=== PATIENT | female | born 1970 | race Caucasian/White ===

== ENCOUNTER 2023-01-03 18:40 | Emergency (ER) | payer BC, SELFPAY ==
[2023-01-03] VITALS (8 sets, daily range): BP systolic 112–129; BP diastolic 68–85; PULSE 73–98; RESP 18; TEMP 36.7; O2SAT 97–98; BMI 32.2
--- NOTE | 2023-01-03 19:07 | ED_ITS ---
HPI - General Adult General Time Seen by Provider: 19:07 Date Seen: 01/03/23 Chief complaint: Shortness of Breath/Dyspnea Stated complaint: Trouble Breathing High BP Time Seen by Provider: 01/03/23 18:57 Source: patient and RN notes reviewed Mode of arrival: ambulatory Limitations: no limitations History of Present Illness HPI narrative: Patient is a very pleasant 52-year-old female coming in with episodic shortness of breath accompanied by a sense of a fast heart rate. The spells have been going on maybe a couple weeks now. They are happening at rest or with activity. There is really no rhyme or reason when they come on. She does not have any chest pain with it. She will feel short of breath in feel like her heart is racing. She recently has started to try to take her pulse and is maybe got pulses in the 120s to 140s when this is happening. When this happens she will feel like her palm starts sweating in her fingers will feel numb and tingly. Galo arriola does have a history of anxiety but she is not feeling anxious or panicked when this is happening. She drinks 1 cup of coffee a day otherwise no other caffeine. Very minimal alcohol use, maybe once a month. She has never had anything like this before. She is supposed to be leaving for [place] this coming Monday. She has not been ill with any recent cough or cold symptoms, is not aware of any recent COVID illness. She denies any known family history of any cardiopulmonary or thromboembolic issues. Patient does remember having maybe some blood in her urine about a week ago but that went away. We did discuss doing a urinalysis while here which she would like. Related Data Home Medications Medication Instructions Recorded Confirmed citalopram 20 mg tablet mg 01/03/23 krill oil PO 01/03/23 vit D3-vit [id number] PO 01/03/23 Allergies Allergy/AdvReac Type Severity Reaction Status Date / Time amoxicillin Allergy Verified 01/03/23 18:47 cephalexin [From Keflex] Allergy Verified 01/03/23 18:47 metformin Allergy Verified 01/03/23 18:47 Review of Systems Status of ROS: Reports: 10 or more systems reviewed and unremarkable except as noted in History and below PFSH PFSH Social History Smoking Status: Never smoker Do you use any of these nicotine containing products: None Second hand tobacco smoke exposure: No How often do you have a drink containing alcohol: monthly or less AUDIT-C Alcohol total score: 1 Non-prescribed substance use: denies use Exam Const: Vital Signs, click to edit/add: Vital Signs - 24 hr 01/03/23 18:48 01/03/23 19:10 01/03/23 19:11 Temperature 98.1 F Pulse Rate 73 77 Pulse Rate [Right Pulse Oximeter] 98 Respiratory Rate 18 Blood Pressure 129/84 Blood Pressure [Ri ght Upper Arm] 126/85 Pulse Oximetry 98 97 97 Oxygen Delivery Me thod Room Air 01/03/23 20:06 01/03/23 19:12 01/03/23 19:31 Temperature Pulse Rate 75 74 Pulse Rate [Right Pulse Oximeter] Respiratory Rate Blood Pressure Blood Pressure [Ri ght Upper Arm] Pulse Oximetry 98 97 97 Oxygen Delivery Me thod 01/03/23 19:35 01/03/23 20:05 Temperature Pulse Rate Pulse Rate [Right Pulse Oximeter] Respiratory Rate Blood Pressure 123/78 112/68 Blood Pressure [Ri ght Upper Arm] Pulse Oximetry Oxygen Delivery Me thod Documenting provider has reviewed patient's vital signs: yes Common normals: no apparent distress, average body habitus, oriented x3, no limi tations, healthy appearing, alert and well nourished General appearance: cooperative, comfortable, well kempt and well developed HENMT: Common normals: normocephalic, head/scalp atraumatic and hearing grossly normal bilaterally Head and scalp: normocephalic and atraumatic Eye: Common normals: PERRL, EOMs intact bilaterally, conjunctivae normal and no scleral icterus Conjunctiva: conjunctiva(e) normal Pupil: PERRL Neck & C-Spine: Common normals: full ROM, no lymphadenopathy, supple, no meningeal signs, no JVD and thyroid normal Thyroid: thyroid normal Resp: Common normals: normal respiratory effort, no retractions, no use of accessory muscles and clear to auscultation bilaterally Auscultation: clear to auscultation bilaterally Cardio: Common normals: no JVD, regular rate, regular rhythm, S1 normal heart sound, S2 normal heart sound, no gallops, no clicks and no murmurs Rate: regular rate Rhythm: regular rhythm Heart sounds: S1 normal and S2 normal GI: Common normals: Normal to inspection, nondistended, normoactive bowel sounds present, soft to palpation, non-tender, no hepatosplenomegaly and no masses Palpation: soft and no hepatosplenomegaly Extremity: Other: No lower extremity edema. Neuro: Common normals: oriented x3 and gait normal Sensorium/orientation: alert Meningeal signs: no meningeal signs Speech: speech normal Psych: Appearance: well kempt Course Course Hospital Course: Patient will have an EKG, portable chest x-ray. Will do a full complement of labs including electrolytes, cardiac enzymes, D-dimer, TSH. This is less likely to be thromboembolic disease but will be considered. I a.m. suspicious that she could be having some tachyarrhythmias like SVT. She understands that unless we see the rhythm disturbance, we cannot diagnose it. She may need further cardiac monitoring outpatient and further follow-up. Reevaluation(s) Reevaluation #1: Reviewed with patient her normal workup thus far. She has had no spells while she has been here. We are still awaiting a thyroid test on her and will let her know if it is abnormal and she would need follow-up for it. Otherwise, have reviewed with her that we will culture her urine. There is no definitive infection at this time. We discussed cardiac monitoring, I am able to provide her with a Holter monitor here [facility] and she would like to do so. She understands that she is going to need to make a clinic follow-up, she stated that she already had made an appointment. She may need further monitoring the Holter monitor does not show anything. Have discussed if this rhythm disturbance happens again and she can seek medical care while it is happening, would advise this, would advise an EKG be done. She will start to try to monitor her pulse rate during these episodes. She does have an Apple watch and recommend checking that. Time: 20:39 Vital Signs Vital signs: Initial Vital Signs Temperature 98.1 F 01/03/23 18:48 Temperature Source Temporal Artery Scan 01/03/23 18:48 Pulse Rate 98 01/03/23 18:48 Respiratory Rate 18 01/03/23 18:48 Blood Pressure 126/85 01/03/23 18:48 Blood Pressure Mean 98 01/03/23 18:48 Blood Pressure Position Sitting 01/03/23 18:48 Pulse Oximetry 98 01/03/23 18:48 Oxygen Delivery Method 01/03/23 18:48 Vital Signs Temperature 98.1 F 01/03/23 18:48 Pulse Rate 98 01/03/23 18:48 Respiratory Rate 18 01/03/23 18:48 Blood Pressure 126/85 01/03/23 18:48 Pulse Oximetry 98 01/03/23 18:48 Oxygen Delivery Method 01/03/23 18:48 Temperature 98.1 F 01/03/23 18:48 Pulse Rate 74 01/03/23 19:31 Respiratory Rate 18 01/03/23 18:48 Blood Pressure 112/68 01/03/23 20:05 Pulse Oximetry 98 01/03/23 20:06 Oxygen Delivery Method 01/03/23 18:48 Medical Decision Making Lab Data Lab results reviewed: Yes I reviewed the patient's lab results Labs: Lab Results 01/03/23 01/03/23 01/03/23 Range/Units 19:35 19:35 19:35 WBC 8.18 (4.50-11.00) K/uL RBC 4.74 (4.00-5.20) m/uL Hgb 13.7 (12.0-16.0) gm/dL Hct 40.9 (33.0-51.0) % MCV 86 (80-100) fL MCH 29 (26-34) pg MCHC 34 (32-36) gm/dL RDW Coeff of Erica 13.5 (11.5-15.5) % Plt Count 331 (140-440) K/uL Neut % (Auto) 54.2 (42.0-72.0) % Lymph % (Auto) 36.7 (20-44) % Jerauld % (Auto) 6.1 (0.0-11.0) % Eos % (Auto) 2.4 (0.0-7.0) % Baso % (Auto) 0.2 (0.0-3.0) % Neut # (Auto) 4.43 (1.7-7.0) K/uL Lymph # (Auto) 3.00 H (0.90-2.90) K/uL Jerauld # (Auto) 0.50 (0.00-0.90) K/UL Eos # (Auto) 0.20 (0.00-0.50) K/uL Baso # (Auto) 0.02 (0.00-0.30) K/uL D-Dimer Quant (PE/DVT) 0.20 (0.00-0.50) ug/ml Sodium 139 (135-149) mmol/L Potassium 4.1 (3.6-5.1) mmol/L Chloride 106 (96-114) mmol/L Carbon Dioxide 26 (20-32) mmol/L BUN 24 (7-30) mg/dL Creatinine 0.7 (0.5-1.5) mg/dL Estimated Creat Clear 94.84 Estimated GFR 104 ml/min Glucose 88 (60-115) mg/dL Calcium 8.8 (8.4-10.6) mg/dL Magnesium 2.1 (1.5-2.6) mg/dL Total Bilirubin 0.4 (0.1-1.5) mg/dL AST 32 (12-35) U/L ALT 35 (4-35) U/L Alkaline Phosphatase 75 (40-150) U/L NT-Pro-B Natriuret Pep 37 pg/mL Total Protein 7.2 (6.0-8.3) g/dL Albumin 4.1 (3.3-5.0) g/dL Urine Color (Yellow) Urine Appearance (Clear) Urine pH (5.0-8.5) Ur Specific [place] (1.000-1.030) Urine Protein (Negative) Urine Glucose (UA) (Negative) Urine Ketones (Negative) Urine Blood (Negative) Urine Nitrite (Negative) Urine Bilirubin (Negative) Urine Urobilinogen (0.2-1.0) Ur Leukocyte Esterase (Negative) Urine RBC (0-2) Urine WBC (0-5) Ur Squamous Epith Cells (None-Few) Urine Bacteria (None) POC Troponin I (0.01-0.04) ng/ml 01/03/23 01/03/23 Range/Units 19:35 20:00 WBC (4.50-11.00) K/uL RBC (4.00-5.20) m/uL Hgb (12.0-16.0) gm/dL Hct (33.0-51.0) % MCV (80-100) fL MCH (26-34) pg MCHC (32-36) gm/dL RDW Coeff of Erica (11.5-15.5) % Plt Count (140-440) K/uL Neut % (Auto) (42.0-72.0) % Lymph % (Auto) (20-44) % Jerauld % (Auto) (0.0-11.0) % Eos % (Auto) (0.0-7.0) % Baso % (Auto) (0.0-3.0) % Neut # (Auto) (1.7-7.0) K/uL Lymph # (Auto) (0.90-2.90) K/uL Jerauld # (Auto) (0.00-0.90) K/UL Eos # (Auto) (0.00-0.50) K/uL Baso # (Auto) (0.00-0.30) K/uL D-Dimer Quant (PE/DVT) (0.00-0.50) ug/ml Sodium (135-149) mmol/L Potassium (3.6-5.1) mmol/L Chloride (96-114) mmol/L Carbon Dioxide (20-32) mmol/L BUN (7-30) mg/dL Creatinine (0.5-1.5) mg/dL Estimated Creat Clear Estimated GFR ml/min Glucose (60-115) mg/dL Calcium (8.4-10.6) mg/dL Magnesium (1.5-2.6) mg/dL Total Bilirubin (0.1-1.5) mg/dL AST (12-35) U/L ALT (4-35) U/L Alkaline Phosphatase (40-150) U/L NT-Pro-B Natriuret Pep pg/mL Total Protein (6.0-8.3) g/dL Albumin (3.3-5.0) g/dL Urine Color Yellow (Yellow) Urine Appearance Clear (Clear) Urine pH 6.0 (5.0-8.5) Ur Specific [place] 1.015 (1.000-1.030) Urine Protein Negative (Negative) Urine Glucose (UA) Negative (Negative) Urine Ketones Negative (Negative) Urine Blood Trace-intact A (Negative) Urine Nitrite Negative (Negative) Urine Bilirubin Negative (Negative) Urine Urobilinogen 0.2 (0.2-1.0) Ur Leukocyte Esterase Negative (Negative) Urine RBC 2-5 A (0-2) Urine WBC 0-2 (0-5) Ur Squamous Epith Cells Few (None-Few) Urine Bacteria Few A (None) POC Troponin I 0.00 L (0.01-0.04) ng/ml Imaging Data Chest x-ray: Attestation: I have reviewed the pertinent imaging results. My impression: No acute abnormality on my preliminary review of this portable chest x-ray. Radiologist's impression: Patient: LUIS F EISENBERG Facility:?[facility] Patient ID:?[id number] Site Patient ID:?[id number]. Site :?[id number] Study:?XRay Chest PORTABLE CHEST-01/03/2023 8:02:25 PM Ordering Physician:Kiet Monsalve Final Report: INDICATION: Episodic shortness of breath. Tachycardia TECHNIQUE: Chest 1 view(s) COMPARISON: Chest radiograph dated 06/06/2012. FINDINGS: Cardiomediastinal silhouette and pulmonary vasculature are normal. No focal consolidation. No significant layering pleural effusion, no pneumothorax. No acute chest wall abnormality. IMPRESSION: No focal consolidation. Dictated by Radha Escamilla MD @ 01/03/2023 8:29:08 PM (Electronic Signature) ECG Data Attestation: I personally reviewed and interpreted this ECG as follows: (Normal sinus rhythm, 77 beats per minute. QT corrected 411 milliseconds. No acute ischemia noted.) Prior ECG tracings: not available for review Critical Care Time Critical Care Time Critical Care Time: No Discharge Plan Discharge Clinical Impression: Shortness of breath, Tachycardia Patient Disposition: Home, Self-Care Condition: Stable Instructions: Tachycardia (ED) Additional Instructions: Return the Holter monitor as per Radiology instructions. Need to keep your clinic follow-up that you have scheduled. We will let you know if there is any abnormality with the thyroid blood test or urine culture. Know that the urine culture will not be back for 48 hours. In the meantime, if you have any sustained fast heart rate where you can get somewhere and have an EKG done, need to do so. If you have no episodes while on the Holter monitor, may need to consider further monitoring with a different device like a ZIO patch. Activity Level: Activity as Tolerated Prescriptions: No Action citalopram 20 mg tablet Label Comments: TAKE 1 TABLET BY MOUTH DAILY vit D3-vit [id number]-[id number] PO krill oil PO Follow Up/Referrals: Keenan Adkins MD [Primary Care Provider] - Stand Alone Forms: [employer] Info Instructions
--- NOTE | 2023-01-03 19:20 | CRLHL7_ITS ---
For Patients: As a result of the Cures Act, medical imaging exams and procedure reports are released immediately into your electronic medical record. You may view this report before your referring provider. If you have questions, please contact your health care provider. INDICATION: Episodic shortness of breath. Tachycardia TECHNIQUE: Chest 1 view(s) COMPARISON: Chest radiograph dated 06/06/2012. FINDINGS: Cardiomediastinal silhouette and pulmonary vasculature are normal. No focal consolidation. No significant layering pleural effusion, no pneumothorax. No acute chest wall abnormality. IMPRESSION: No focal consolidation. Dictated by Radha Escamilla MD @ 01/03/2023 8:29:08 PM (Electronically Signed)
[2023-01-03 20:04] LABS: Basophils Absolute Auto 0.02 K/uL (0.00-0.30); Basophils Percent Auto 0.2 % (0.0-3.0); Eosinophils Percent Auto 2.4 % (0.0-7.0); Hematocrit 40.9 % (33.0-51.0); Hemoglobin* 13.7 gm/dL (12.0-16.0); Immature Granulocytes Abs Auto 0.03 K/uL (0.00-0.30); Immature Granulocytes Pct Auto 0.4 %; Lymphocytes Percent Auto 36.7 % (20-44); Mean Corpuscular HGB Conc 34 gm/dL (32-36); Mean Corpuscular Hemoglobin 29 pg (26-34); Mean Corpuscular Volume 86 fL (80-100); Monocytes Percent Auto 6.1 % (0.0-11.0); Neutrophils Absolute Auto 4.43 K/uL (1.7-7.0); Neutrophils Percent Auto 54.2 % (42.0-72.0); Platelet Count* 331 K/uL (140-440); RDW Coefficient of Variation % 13.5 % (11.5-15.5); Red Blood Count 4.74 m/uL (4.00-5.20); White Blood Count* 8.18 K/uL (4.50-11.00)
[2023-01-03 20:06] LABS: Slide Review Reflex No
[2023-01-03 20:12] LABS: Appearance Urine Clear (Clear); Bilirubin Urine Negative (Negative); Blood Urine Trace-intact (Negative); Color Urine Yellow (Yellow); Glucose Urine Negative (Negative); Ketones Urine Negative (Negative); Leukocyte Esterase Urine Negative (Negative); Nitrite Urine Negative (Negative); Protein Urine Negative (Negative); Specific Gravity Urine 1.015 (1.000-1.030); Urobilinogen Urine 0.2 (0.2-1.0)
[2023-01-03 20:12] LABS: Albumin* 4.1 g/dL (3.3-5.0); Chloride* 106 mmol/L (96-114)
[2023-01-03 20:13] LABS: Potassium* 4.1 mmol/L (3.6-5.1); Sodium* 139 mmol/L (135-149)
[2023-01-03 20:15] LABS: Aspartate Amino Transferase* 32 U/L (12-35); Bilirubin Total* 0.4 mg/dL (0.1-1.5); Blood Urea Nitrogen* 24 mg/dL (7-30); Carbon Dioxide* 26 mmol/L (20-32); Creatinine* 0.7 mg/dL (0.5-1.5); Est. Creatinine Clearance* 94.84; Estimated Glomerular Filt Rate 104 ml/min; Total Protein* 7.2 g/dL (6.0-8.3)
[2023-01-03 20:16] LABS: Alanine Aminotransferase* 35 U/L (4-35); Alkaline Phosphatase* 75 U/L (40-150); Calcium* 8.8 mg/dL (8.4-10.6); Glucose* 88 mg/dL (60-115); Magnesium* 2.1 mg/dL (1.5-2.6)
[2023-01-03 20:27] LABS: WBC Urine 0-2 (0-5)
[2023-01-03 20:28] LABS: Bacteria Urine Few; Squamous Epithelial Cell Urine Few (None-Few)
[2023-01-03 20:28] LABS: NT Pro B Type NatriureticPept* 37 pg/mL
[2023-01-03 20:48] LABS: TSH With Reflex to FT4* 0.888 uIU/mL (0.270-4.200)
--- NOTE | 2023-01-03 21:30 | PC.NURSE ---
Holter applied per radiology, instruction given to patient.
== END 2023-01-03 21:30 | disposition home or self-care (01) ==
PROVIDERS: Emergency Provider Family Medicine; PCP Family Medicine
DX: R06.02 Shortness of breath (principal); R00.0 Tachycardia, unspecified
CPT/HCPCS: 36415; 71045; 80053; 81001; 83735; 83880; 84443; 84484; 85025; 85379; 87086; 93005; 93225; 93226; 94761; 99284; 99285

== ENCOUNTER 2023-04-24 11:50 | Outpatient (CLI) | payer BC, SELFPAY ==
--- NOTE | 2023-04-24 14:20 | W.ANESCHARGE ---
Anesthesia Charges Start Date/Time Anesthesia Start Date: 04/24/23 Anesthesia Start Time: 13:26 Stop Date/Time Anesthesia Stop Date: 04/24/23 Anesthesia Stop Time: 14:18
== END 2023-04-24 11:51 | disposition home or self-care (01) ==
LOC: OP CLINIC 11:51
PROVIDERS: PCP Family Medicine; Visit Provider Surgery
DX: Z12.11 Encounter for screening for malignant neoplasm of colon (principal); K63.5 Polyp of colon; K62.1 Rectal polyp; K64.8 Other hemorrhoids; K64.4 Residual hemorrhoidal skin tags
CPT/HCPCS: 00811; 45380; 45385; 88305; J2704

== ENCOUNTER 2025-01-31 09:15 | Emergency (ER) | payer BC, SELFPAY ==
--- OUTSIDE RECORDS SUMMARY | 2025-01-31 09:17 | XMS_ITS | Clinical Summary ---
[facility] Address [address] [place] [address] Care Team Providers Care Editor At Large Name Role Phone Unassigned, Provider Primary Care Provider Unava ilable Source Comments You are receiving this document as you are listed as the primary care provider,follow-up provider, or the patient has been referred to you for consultation.This is in compliance with the Medicare andMedicaid EHR Incentive Program,which states Providers who transition their patient to another setting of careor provider of care or refers their patient to another provider of care shouldprovide summary care record for each transition of care or referral. [facility] Allergies Active Allergy Reactions Criticality Noted Date Comments Cat Dander 04/10/2007 HUT Comment: watery eyes and nasal congestion Ciprofloxacin Other, see comments 07/25/2015 HUT Comment: Leg tightness, sore throat see encounter 07/25/2015; HUT Reaction: Other - Describe In Comment Field Metformin Other, see comments 02/28/2013 HUT Reaction: Diarrhea Molds & Smuts 04/10/2007 HUT Comment: watery eyes and nasal congestion Other 04/10/2007 HUT Comment: environmental-grass trees pollen etc-watery eyes and nasal congestion Sulfamethoxazole-Trimet hoprim Other, see comments 08/04/2016 HUT Comment: GI intolerance; HUT Reaction: Other - Describe In Comment Field Active Problems Problem Noted Date Diagnosed Date Hiatal hernia with GERD 06/13/2018 Anxiety state 02/22/2018 Wrist pain, chronic, right 09/25/2017 PCOS (polycystic ovarian syndrome) 05/18/2017 Hiatal hernia 05/12/2016 Gastric reflux with aspiration 05/12/2016 Giles's esophagus without dysplasia 05/12/2016 SOLIS (obstructive sleep apnea) 10/21/2015 Overview (09/05/2019): SOLIS 10/10/2015 AHI-17 underestimated Hyperlipidemia 08/06/2015 History of recurrent UTIs 08/06/2015 Giles's esophagus with dysplasia 05/29/2014 Overview (09/05/2019): EGD 05/2014 esophageal ulcer and Giles's esophagus Raynaud disease 11/13/2013 Psoriasis 02/28/2013 Allergic rhinitis 03/12/2012 Overview (09/06/2019): Allergic rhinitis, cause unspecified Polycystic ovaries Endometriosis Overview (09/06/2019): Endometriosis, site unspecified Dysmenorrhea Other acne Resolved Problems Problem Noted Date Diagnosed Date Resolved Date UTI (urinary tract infection) 05/12/2016 09/05/2019 Immunizations Immunization Administration Dates Next Due Influenza IIV4 (Quadrivalent) 0.5mL (40008) 02/2015 Td (7+ yrs) 07/07/1999 Tdap 11/09/2011 Family History Medical History Relation Name Comments Cancer Father esophogus - at 60 Hypertension Father Allergies Mother Asthma Mother Hyperlipidemia Mother Hypertension Mother Other Mother migraines Giles's esophagus Brother 3 Giles's esophagus Brother 4 Other Daughter 2 developemental delay with verbal apraxia Cancer Maternal Grandfather bladder Arthritis Maternal Grandmother Other Maternal Grandmother kidney stones Cancer, Breast Other 2 great aunt Cancer, Breast Paternal Aunt 2 Diabetes Paternal Grandmother Relation Name Status Comments Father Mother Alive Brother 1 Brother 2 Brother 3 Brother 4 Daughter 1 Daughter 2 Maternal Grandfather Maternal Grandmother Other 1 Other 2 Paternal Aunt 1 Paternal Aunt 2 Paternal Grandfather Paternal Grandmother Social History Tobacco Use Types Packs/Day Years Used Date Smoking Tobacco: Never Smokeless Tobacco: Never Alcohol Use Standard Drinks/Week Comments Yes 0 (1 standard drink = 0.6 oz pur e alcohol) Comments No Sex and Gender Information Value Date Recorded Sex Assigned at Not on file Legal Sex Female 5:22 AM CDT Gender Identity Not on file Sexual Orientation Not on file 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 Not on file Not on file Plan of Treatment Health Maintenance Due Date Last Done Comments Cervical Cancer Screening Due 1970 Colon Cancer Screening Plan Due 1970 Hep C Screening (Preventive Services) 1970 HIV Screening (Preventive Services) 1986 Adult Preventive Visit 1988 HepB (1) 1989 Mammogram 08/29/2012 08/29/2011 (Completed) Cholesterol 2015 Pneumococcal 50+ Yrs (1 of 1 - PCV) 2020 Zoster/Shingles (1 of 2) 2020 DTaP/Tdap/Td (3 - Tdap) 11/09/2021 11/09/19 12, 08/29/2011 (Completed), 07/07/1999 COVID-19 Vaccine (1 - 2023-2 5 season) 2024 Influenza (#1) 2024 09/09/2015 HepA Aged Out No longer eligi ble based on patient's age to complete this topic Hib Aged Out No longer eligi ble based on patient's age to complete this topic IPV (Polio) Aged Out No longer eligi ble based on patient's age to complete this topic MCV4 Aged Out No longer eligi ble based on patient's age to complete this topic Meningococcal B Aged Out No longer el igible based on patient's age to complete this topic Care Teams Editor At Large Relationship Specialty Start Date End Date Unassigned, Provider [address] [place] [address] PCP - General 07/11/02
--- OUTSIDE RECORDS SUMMARY | 2025-01-31 09:18 | XMS_ITS | Clinical Summary ---
Author Organization [facility] Address [address] [place] [address] Care Team Providers Care Director Hris Name Role Phone Lashon Conrad DO Primary Care Provider [phone]- [phone] Allergies Active Allergy Reactions Criticality Noted Date Comments Amoxicillin *Unknown 01/03/2023 Sulfamethoxazole-Trimet hoprim Other - Describe In Comment Field 08/04/2016 GI intolerance Cats (Fur, Dander, Saliva) 04/10/2007 watery eyes and nasal congestion Cephalexin *Unknown 01/03/2023 Ciprofloxacin Other - Describe In Comment Field 07/25/2015 Leg tightness, sore throat see encounter 07/25/2015 Latex Contact Dermatitis 12/19/2023 Metformin Diarrhea 02/28/2013 Mold Extracts 04/10/2007 watery eyes and nasal congestion Unlisted Allergen (Include Detail In Comments) 04/10/2007 environmental-grass trees pollen etc-watery eyes and nasal congestion Medications acetaminophen (TYLENOL EXTRA STRGTH) 500 mg tabletIndication s:Gastric reflux with aspiration Take 1-2 tablets by mouth every 6 hours if needed (For mild pain.). Max acetaminophen dose: 4000mg in 24 hrs. 40 tablet 8 9:53 AM CDT 06/14/20 18 Active albuterol (PROAIR RESPICLICK) 90 mcg/actuation INHALERIndicatio ns:Exercise induced bronchospasm (HC) Inhale 2 Puffs by mouth every 4 hours if needed. 1 Inhaler 1 01/29/20 20 Active CPAPIndications: SOLIS (obstructive sleep apnea) CPAP machine for home use at pressure 14 cmw , full face mask x1/3month with a full face cushion x1/mo Heat humidifier x 1/5 year, Humidifier chamber x 1/6mo, heated tubing x 1/3mo, Headgear x 1/6mo, Chin strap x 1/6 months, Filters: Disposable x 2pk/1mo & Reusable x 1pk/6mo 1 Each 11 02/16/20 23 Active Fish Oil-Volcano-3 Fatty Acids (Fish OiL) 300-500 mg cap Take 500 mg by mouth once daily. 07/18/20 23 Active biotin 1 mg cap Take 1,000 mcg by mouth once daily. 04/12/20 23 Active neomycin-polymyx in-dexAMETHasone (MAXITROL) ophthalmic ointment 04/29/20 24 Active celecoxib (CELEBREX) 200 mg capsuleIndicatio ns:Arthritis of right hip Take 1 Capsule (200 mg) by mouth two times daily with meals. Patient failed ibuprofen, acetaminophen and naproxen 60 Capsule 2 05/01/20 24 Active citalopram (CELEXA) 20 mg tabletIndication s:Anxiety TAKE 1 TABLET BY MOUTH DAILY 90 Tablet 1 06/22/20 24 Active progesterone micronized (PROMETRIUM) 100 mg capsule Take 100 mg by mouth at bedtime. 07/24/20 24 Active estradioL (ESTRACE) 1 mg tablet Take 1 mg by mouth once daily. 07/24/20 24 Active citalopram (CELEXA) 10 mg tabletIndication s:Anxiety Take 1 Tablet (10 mg) by mouth once daily in the morning. Take in addition to 20 mg tablet for 30 mg total daily dose. 90 Tablet 1 09/21/20 24 Active losartan (COZAAR) 25 mg tabletIndication s:HTN (hypertension) Take 1 Tablet (25 mg) by mouth once daily. 90 Tablet 12/17/19 25 Active loratadine-pseud oephedrine (Loratadine-D) 10-240 mg 24hr tabletIndication s:Environmental allergies Take 1 Tablet by mouth once daily. 90 Tablet 1 12/17/19 25 Active Linzess 290 mcg cap capsule Take 1 Capsule by mouth before breakfast. 025 Discontin ued(*Gail ent states no longer taking) Voquezna 20 mg tablet Take 20 mg by mouth once daily. 07/25/20 24 025 Discontin ued(*Gail ent states no longer taking) Active Problems Problem Noted Date Diagnosed Date Arthritis of right hip 02/21/2024 Overview (02/21/2024): November 2023 pain started. February 2024 MRI showing labral tear and arthritis. Anxiety 01/31/2024 HTN (hypertension) 01/31/2024 Digital mucous cyst of finger of right hand 05/07 Traumatic tear of supraspinatus tendon of right shoulder 11/28/2021 Tear of right infraspinatus tendon 11/28/2021 Tendinopathy of right biceps tendon 11/28/2021 Rotator cuff impingement syndrome of right shoul kacey 11/28/2021 Hiatal hernia with GERD 06/13/2018 Anxiety state 02/22/2018 Wrist pain, chronic, right 09/25/2017 PCOS (polycystic ovarian syndrome) 05/18/2017 Giles's esophagus without dysplasia 05/12/2016 Gastric reflux with aspiration 05/12/2016 Hiatal hernia 05/12/2016 SOLIS 10/10/2015 AHI-17 underestimated 10/21/2015 History of recurrent UTIs 08/06/2015 Mixed hyperlipidemia 08/06/2015 Giles's esophagus with dysplasia 05/29/2014 Overview (05/29/2014): EGD 05/2014 esophageal ulcer and Giles's esophagus Raynaud disease 11/13/2013 Psoriasis 02/28/2013 Allergic rhinitis, cause unspecified 03/12/2012 Other acne Dysmenorrhea Endometriosis, site unspecified Polycystic ovaries Resolved Problems Problem Noted Date Diagnosed Date Resolved Date UTI (urinary tract infection) 05/12/2016 10/20/2023 Encounters Date Type Department Care Team Description 01/31/2025 8:00 AM CDT Telemedicine [address] [address] Valentin Melton NP Breathing Problem (Patient states she feels heavy pressure on her chest); Headache (Patient states illness started with a severe headache, roughly two weeks ago. OTC meds did not help. Took at home COVID-19 test - negative. Loss of vision in right eye during episodes.); Fatigue; Cough (Nonproductive cough, very harsh) 01/31/2025 Travel 12/16/2024 Refill [facility] [address] [place] [address] Lashon Conrad, DO Refill Request (Loratadine) 12/16/2024 Refill [facility] [address] [place] [address] Lashon Conrad, DO Refill Request (Losartan) from Last 3 Months Immunizations Immunization Administration Dates Next Due Influenza Virus, Unspecified 09/06/2015 Influenza, IIV3 (Age >=3 years) 10/18/2003 Influenza, IIV4 09/09/2015 Td (Age >=7 Years) 11/15/2021 Td, Preservative Free (age >= 7 Years) 9 Tdap 11/09/2011 Family History Medical History Relation Name Comments Giles's esophagus Brother 1 Giles's esophagus Brother 2 Other Daughter developemental delay with verbal apraxia Cancer Father esophogus - at 60 Hypertension Father Cancer Maternal Grandfather bladder Arthritis Maternal Grandmother Other Maternal Grandmother kidney stones Allergies Mother Asthma Mother Cancer-breast Mother Hyperlipidemia Mother Hypertension Mother Other Mother migraines Cancer-breast Other great aunt Cancer-breast Paternal Aunt Alcohol/Drug Paternal Grandfather Diabetes Paternal Grandmother Relation Name Status Comments Brother 1 Brother 2 Daughter Father Maternal Grandfather Maternal Grandmother Mother Alive Other Paternal Aunt Paternal Grandfather Paternal Grandmother Social History Tobacco Use Types Packs/Day Years Used Date Smoking Tobacco: Never Smokeless Tobacco: Never Tobacco Cessation:Counseling Given: Yes Alcohol Use Standard Drinks/Week Comments Not Currently 0 (1 standard drink = 0.6 oz pur e alcohol) PHQ-2 Answer Date Recorded PHQ-2 TOTAL SCORE 2 01/31/2024 Social Connections Answer Date Recorded Do you often feel lonely or isolated from those around you? 0 10/19/2023 Financial Resource Strain Answer Date R ecorded Difficulty of Paying Living Expenses 3 10/19/2023 Difficulty of Paying Living Expenses Not on file 10/19/2023 Food Insecurity Answer Date Recorded Do you worry your food will run out before you are able to buy more? 1 10/19/2023 Transportation Needs Answer Date Record ed Does lack of transportation keep you from medica l appointments? 1 10/19/2023 Does lack of transportation keep you from work, meetings or getting things that you need? 1 10/19/2023 Housing Stability Answer Date Recorded What is your housing situation today? 1 10/19/2023 Utilities Answer Date Recorded Do you have trouble paying f or utilities (for example, heat, electricity, water, phone)? 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 Not on file Not on file Obstetrics History Para Term AB IAB SAB Ectopic Multiple Livin g Live Births 4 3 3 0 1 0 1 0 0 3 Date Outcome GA Total Labor Labor/2nd/3rd Weight Sex Type Anes PTL Porsche A1 A5 Name Clin SAB Term Term Term Comments x3 Last Filed Vital Signs Vital Sign Reading Time Taken Comments Blood Pressure 123/75 08/21/2024 3:27 PM CDT Pulse 72 08/21/2024 3:27 PM CDT Temperature 36.4 C (97.5 F) 05/01/2024 1:10 PM CDT Respiratory Rate 16 04/03/2024 3:06 PM CDT Oxygen Saturation 95% 05/01/2024 1:10 PM CDT Inhaled Oxygen Concentration - - Weight 95.2 kg (209 lb 12.8 oz) 01/04/2024 2:29 PM NUCLEAR PHYSICIAN Height 172.7 cm (5' 8) 12/20/2023 6:19 AM NUCLEAR PHYSICIAN Body Mass Index 31.9 12/20/2023 6:19 AM NUCLEAR PHYSICIAN Plan of Treatment Health Maintenance Due Date Last Done Comments HIV for age 15-65 1985 Hepatitis C screening for ag e 18-79 1988 Pneumococcal series for age 50+ (1 of 1 - PCV) 2020 Zoster (shingles) series for age 50+ (1 of 2) 2020 COVID-19 vaccine series ( season) 2024 06/26/2021, 06/04/2021 Influenza Vaccine (#1) 2024 5, 09/06/2015, 10/18/2003 Mammogram for age 45-75 11/14/2024 11/14/19 24, 10/27/2023, 08/03/2021, Additional history exists BMI (ht and wt on same day) for age 18+ 12/14/2024 12/14/2023, 04/21/2023, 01/23/2023, Additional history exists Pap test for age 21-65 01/28/2025 , 01/28/2022, 08/04/2015, Additional history exists Depression screening for age 12+ 01/30/2025 01/31/2024, 01/31/2024, 01/05/2024, Additional history exists Lipids for age 45-75 01/24/2028 01/23/2023, 01/21/2021, 10/22/2020, Additional history exists Tetanus booster 11/15/2031 11/15/2021, 02/2012, 08/29/2011 (Completed outside of [facility]), Additional history exists Colonoscopy through age 75 04/24/2033 04/24/2023 Tdap Completed 11/09/2011 Medical Devices Implanted Type Area Fine Arts Instructor Device Identifier Shelf Expiration Date Model / Serial / Lot Linx Reflux Management System 17 Implanted:Qty: 1 on 05/11/2016 by Rubin Helton MD at [facility] [employer] 02/09/2020 / [id number] / [id number] Description:Linx Reflux Emily gement System 17 Procedures Procedure Name Priority Date/Time Associated Diagnosis Comments XR MAMMO MARY UNI ADDL VIEWS LEFT STEVIE 11/14/2023 1:39 PM NUCLEAR PHYSICIAN Abnormal mammogram COLONOSCOPY SCREENING Routine 04/24/2023 12:00 AM CDT Screening for colon cancer LC LIPID PANEL AND CHOL/HDL RATIO Routine 01/23/2023 2:42 PM CDT Mixed hyperlipidemia HPV HIGH RISK Routine 01/28/2022 9:15 AM CDT from Last 3 Months or Most Recently Relevant to Health Maintenance Results * XR MAMMO MARY UNI ADDL VIEWS LEFT (11/14/2023 1:39 PM NUCLEAR PHYSICIAN) Anatomical Region Laterality Modality BREASTS, Breast Left Mammography Impressions 11/15/2023 9:00 AM NUCLEAR PHYSICIAN Questionable persistent nodular density in the deep central LEFT breast for which additional imaging is recommended. ULTRASOUND TECHNIQUE: Directed LEFT breast ultrasound with this radiologist present. FINDINGS: The LEFT breast is carefully scanned at the 12 o'clock position extending back to the chest wall. Only normal breast tissue is identified. No underlying mass. No architectural distortion. These findings were discussed briefly with the patient. Annual mammography is recommended. BI-RADS Category 1: Negative Aman Wolfe M.D. Diagnostic/Nuclear Medicine Radiologist [email or web address] / PATIENTS: You will also receive a letter with your examination results in an easy to read format. If you have questions about your results, please contact your referring provider. Narrative 11/15/2023 9:00 AM NUCLEAR PHYSICIAN As a result of the Century Cures Act, medical imaging exams and procedure reports are released immediately into your electronic medical record. You may view this report before your referring provider. If you have questions, please contact your health care provider. LEFT DIGITAL DIAGNOSTIC MAMMOGRAM WITH TOMOSYNTHESIS, 11/14/2023 LEFT BREAST ULTRASOUND, 11/14/2023 CLINICAL HISTORY: 52-year-old asymptomatic female. Follow-up focal LEFT breast asymmetry. TECHNIQUE: Spot compression view of the LEFT breast in the CC and MLO projection. Digital breast tomosynthesis utilized in interpretation. LEFT breast ultrasound was also performed. COMPARISON: 10/27/2023. BREAST COMPOSITION: There are scattered areas of fibroglandular density FINDINGS: No underlying mass or architectural distortion. No suspicious microcalcifications. A questionable density in the central deep LEFT breast is likely superimposed breast tissue. However, ultrasound will be performed for further evaluation. Please see ultrasound report from the same date. us Lashon Conrad DO MAMMO Final Resu lt * COLONOSCOPY SCREENING [[id number]] (04/24/2023 12:00 AM CDT) Cassandra Houser MD GI PROCEDURE ORD Final Resu lt * (ABNORMAL) LC LIPID PANEL AND CHOL/HDL RATIO (01/23/2023 2:42 PM CDT) [facility] Cholesterol, Total 267(H) 100 - 199 mg/dL 01/26/2023 10:[address] [facility] ([facility]) Triglycerides 351(H) 0 - 149 mg/dL 01/26/2023 10:10 AM CDT [facility] ([facility]) HDL Cholesterol 44 >39 mg/dL 10:[address] [facility] ([facility]) VLDL Cholesterol Shaheen 66(H) 5 - 40 mg/dL 01/26/2023 10:10 AM T [facility] ([facility]) LDL Chol Calc ([facility]) 157(H) 0 - 99 mg/dL 01/26/2023 10:10 AM CDT [facility] ([facility]) T. Chol/HDL Ratio 6.1(H) 0.0 - 4.4 ratio 01/26/2023 10:10 AM T [facility] ([facility]) Comment: T. Chol/HDL Ratio Men Women 1/2 Avg.Risk 3.4 3.3 Avg.Risk 5.0 4.4 2X Avg.Risk 9.6 7.1 3X Avg.Risk 23.4 11.0 Blood BLOOD SPECIMEN / Unknown Venipuncture / Unknown 01/23/2023 2:42 PM CDT 01/23/2023 2:44 PM CDT Narrative [facility] ([facility]) - 01/26/2023 10:10 AM CDT Performed at: [address] [place] [id number] Ruby Developer: Demarcus Ordonez MD, Phone: [phone] us Cassandra Hosuer MD SEND OUTS Final Resul t [facility]) [facility] [place], [place] [address] * HPV HIGH RISK (01/28/2022 9:15 AM CDT) TYPE 16 Negative Negative 02/01/2022 11:57 AM CDT [facility] TYPE 18 Negative Negative 02/01/2022 11:57 AM CDT [facility] OTHER HIGH RISK TYPES Negative Negative 02/01/2022 11:57 AM CDT [facility] Other (Cervical/Vagina l) 01/28/2022 9:15 AM CDT 01/31/2022 7:36 AM CDT Narrative [facility] - 02/01/2022 11:57 AM CDT HPV types 16, 18, 31, 33, 35, 39, 45, 51, 52, 56, 58, 59, 66 and 68 DNA were undetectable or below the pre-set threshold. Methodology: [place] [address]00 HPV Test us Sharon Wolff MD MICROBIOLOGY Final Resu lt [facility] [address] [place] [address], [place] from Last 3 Months or Most Recently Relevant to Health Maintenance Insurance [facility] [place] [address] [place] [phone] Advance Directives * Full Code (Latest Code Status on File) Date Activated Date Inactivated Comments 01/26/2024 8:20 AM 01/26/2024 12:06 PM Question Answer Comments Code Status Discussion: Reviewed Preferences * Full Code Date Activated Date Inactivated Comments 12/20/2023 6:16 AM 12/20/2023 11:22 AM Question Answer Comments Code Status Discussion: Reviewed Preferences * Full Code Date Activated Date Inactivated Comments 06/13/2018 6:38 AM 06/14/2018 12:40 PM * Full Code Date Activated Date Inactivated Comments 05/11/2016 9:16 AM 05/12/2016 1:08 PM Care Teams Director Hris Relationship Specialty Start Date End Date Lashon Conrad [place] [address] PCP - General Family Practice 10/19/23
[2025-01-31 09:31] VITALS: BP 123/83; PULSE 75; RESP 18; TEMP 37.3; O2SAT 96
[2025-01-31 09:43] VITALS: O2SAT 97
--- NOTE | 2025-01-31 09:43 | CRLHL7_ITS ---
For Patients: As a result of the Century Cures Act, medical imaging exams and procedure reports are released immediately into your electronic medical record. You may view this report before your referring provider. If you have questions, please contact your health care provider. INDICATION: Chest pain. TECHNIQUE: Chest 2 views. COMPARISON: X-ray chest December 2022. FINDINGS/ IMPRESSION: No focal consolidation, effusion or pneumothorax. Cardiac size is within normal limit without pulmonary edema. No acute osseous findings. Dictated by Delicia Reaves MD @ 01/31/2025 10:34:02 AM (Electronically Signed)
--- OUTSIDE RECORDS SUMMARY | 2025-01-31 09:53 | XMS_ITS | Clinical Summary ---
Author Organization [facility] Address [address] [place] [address] Care Team Providers Care Casing In Line Setter Name Role Phone Lashon Conrad DO Primary Care Provider +1- [phone] Allergies Active Allergy Reactions Criticality Noted Date [...] 1 Each 11 02/16/20 23 Active Fish Oil-Hartman-3 Fatty Acids (Fish OiL) 300-500 mg cap [...] reflux with aspiration 05/12/2016 Hiatal hernia 05/12/2016 OSLIS 10/10/2015 AHI-17 underestimated 10/21/2015 History of recurrent [...] Team Description 01/31/2025 8:00 AM CDT Telemedicine [address] [address] Valentin Melton NP Breathing Problem (Patient states she feels heavy pressure on her chest); Headache (Patient states illness started with a severe headache, roughly two weeks ago. OTC meds did not help. Took at home COVID-19 test - negative. Loss of vision in right eye during episodes.); Fatigue; Cough (Nonproductive cough, very harsh) 01/31/2025 Travel 12/16/2024 Refill [facility] [address] [place] [address] Lashon Conrad, DO Refill Request (Loratadine) 12/16/2024 Refill [facility] [address] [place] [address] Lashon Conrad, DO Refill Request (Losartan) from [...] on file Legal Sex Female 5:27 AM BEADING SAWYER Gender Identity Not on file Sexual Orientation [...] (209 lb 12.8 oz) 01/04/2024 2:29 PM BEADING SAWYER Height 172.7 cm (5' 8) 12/20/2023 6:19 AM BEADING SAWYER Body Mass Index 31.9 12/20/2023 6:19 AM BEADING SAWYER Plan of Treatment Health Maintenance Due Date [...] 11/15/2031 11/15/2021, 02/2012, 08/29/2011 (Completed outside of [facility]), Additional history exists Colonoscopy through age 75 04/24/2033 04/24/2023 Tdap Completed 11/09/2011 Medical Devices Implanted Type Area Policy Writer Sales Device Identifier Shelf Expiration Date Model / Serial / Lot Linx Reflux Management System 17 Implanted:Qty: 1 on 05/11/2016 by Rubin Helton MD at [facility] [employer] 02/09/2020 / [id number] / [id number] Description:Linx Reflux Emily gement System 17 Procedures Procedure Name Priority Date/Time Associated Diagnosis Comments XR MAMMO MARY UNI ADDL VIEWS LEFT STEVIE 11/14/2023 1:39 PM BEADING SAWYER Abnormal mammogram COLONOSCOPY SCREENING Routine 04/24/2023 12:00 AM CDT Screening for colon cancer LC LIPID PANEL AND CHOL/HDL RATIO Routine 01/23/2023 2:42 PM CDT Mixed hyperlipidemia HPV HIGH RISK Routine 01/28/2022 9:15 AM CDT from Last 3 Months or Most Recently Relevant to Health Maintenance Results * XR MAMMO MARY UNI ADDL VIEWS LEFT (11/14/2023 1:39 PM BEADING SAWYER) Anatomical Region Laterality Modality BREASTS, Breast Left Mammography Impressions 11/15/2023 9:00 AM BEADING SAWYER Questionable persistent nodular density in the deep [...] your referring provider. Narrative 11/15/2023 9:00 AM BEADING SAWYER As a result of the Century Cures [...] MAMMO Final Resu lt * COLONOSCOPY SCREENING [[id number]] (04/24/2023 12:00 AM CDT) Cassandra Houser MD GI PROCEDURE ORD Final Resu lt * (ABNORMAL) LC LIPID PANEL AND CHOL/HDL RATIO (01/23/2023 2:42 PM CDT) [facility] Cholesterol, Total 267(H) 100 - 199 mg/dL 01/26/2023 10:10 AM CDT [facility] ([facility]) Triglycerides 351(H) 0 - 149 mg/dL 01/26/2023 10:10 AM CDT [facility] ([facility]) HDL Cholesterol 44 >39 mg/dL 10:10 AM CDT [facility] ([facility]) VLDL Cholesterol Shaheen 66(H) 5 - 40 mg/dL 01/26/2023 10:10 AM T [facility] ([facility]) LDL Chol Calc ([facility]) 157(H) 0 - 99 mg/dL 01/26/2023 10:10 AM CDT [facility] ([facility]) T. Chol/HDL Ratio 6.1(H) 0.0 - 4.4 ratio 01/26/2023 10:10 AM T [facility] ([facility]) Comment: T. Chol/HDL Ratio Men Women 1/2 Avg.Risk 3.4 3.3 Avg.Risk 5.0 4.4 2X Avg.Risk 9.6 7.1 3X Avg.Risk 23.4 11.0 Blood BLOOD SPECIMEN / Unknown Venipuncture / Unknown 01/23/2023 2:42 PM CDT 01/23/2023 2:44 PM CDT Narrative [facility] ([facility]) - 01/26/2023 10:10 AM CDT Performed at: [address] [place] [id number] Heating Unit Installer: Demarcus Ordonez MD, Phone: [phone] us Cassandra Houser MD SEND OUTS Final Resul t [facility]) [facility] [place], [place] [address] * HPV HIGH RISK (01/28/2022 9:15 AM CDT) TYPE 16 Negative Negative 02/01/2022 11:57 AM CDT [facility] LAB[facility] TYPE 18 Negative Negative 02/01/2022 11:57 AM CDT [facility] OTHER HIGH RISK TYPES Negative Negative 02/01/2022 11:57 AM CDT [facility] Other (Cervical/Vagina l) 01/28/2022 9:15 AM CDT 01/31/2022 7:36 AM CDT Narrative [facility] - 02/01/2022 11:57 AM CDT HPV types 16, 18, 31, 33, 35, 39, 45, 51, 52, 56, 58, 59, 66 and 68 DNA were undetectable or below the pre-set threshold. Methodology: [place] [address] HPV Test us Sharon Wolff MD MICROBIOLOGY Final Resu lt [facility] [address] [place] [address], [place] from Last 3 Months or Most Recently Relevant to Health Maintenance Insurance [facility] [place] [id number] Advance Directives * Full Code (Latest Code [...] 9:16 AM 05/12/2016 1:08 PM Care Teams Casing In Line Setter Relationship Specialty Start Date End Date Lashon Conrad [place] [address] PCP - General Family Practice 10/19/23
--- OUTSIDE RECORDS SUMMARY | 2025-01-31 09:53 | XMS_ITS | Clinical Summary ---
[facility] Organization [facility] Address [address] [place] [address] Care Team Providers Care Manager Business Systems Name Role Phone Unassigned, Provider Primary Care [...] for each transition of care or referral. [facility] Allergies Active Allergy Reactions Criticality Noted Date [...] Dates Next Due Influenza IIV4 (Quadrivalent) 0.5mL (73670) 02/2015 Td (7+ yrs) 07/07/1999 Tdap 11/09/2011 [...] age to complete this topic Care Teams Manager Business Systems Relationship Specialty Start Date End Date Unassigned, Provider [address] [place] [address] PCP - General 07/11/02
[2025-01-31 10:36] LABS: Lactate* 0.6 mmol/L (0.5-1.9)
[2025-01-31 10:40] LABS: Basophils Absolute Auto 0.01 K/uL (0.00-0.30); Basophils Percent Auto 0.2 % (0.0-3.0); Eosinophils Percent Auto 1.8 % (0.0-7.0); Hematocrit 42.5 % (33.0-51.0); Immature Granulocytes Abs Auto 0.01 K/uL (0.00-0.30); Immature Granulocytes Pct Auto 0.2 %; Lymphocytes Absolute Auto 1.87 K/uL (0.90-2.90); Lymphocytes Percent Auto 34.2 % (20-44); Mean Corpuscular HGB Conc 33 gm/dL (32-36); Mean Corpuscular Hemoglobin 28 pg (26-34); Mean Corpuscular Volume 84 fL (80-100); Monocytes Percent Auto 7.1 % (0.0-11.0); Neutrophils Absolute Auto 3.09 K/uL (1.7-7.0); Neutrophils Percent Auto 56.5 % (42.0-72.0); Platelet Count* 276 K/uL (140-440); RDW Coefficient of Variation % 12.9 % (11.5-15.5); Red Blood Count 5.04 m/uL (4.00-5.20); White Blood Count* 5.47 K/uL (4.50-11.00)
--- NOTE | 2025-01-31 10:41 | ED_ITS ---
HPI - General Adult General Chief complaint: Chest Pain Stated complaint: Chest pressure, headache Time Seen by Provider: 01/31/25 09:42 Source: patient Mode of arrival: ambulatory Limitations: no limitations History of Present Illness HPI narrative: 54-year-old female presenting today with a ?cold she can get rid of. Patient states that she has been ill for approximately 13 days. She complains of body aches, cough. She states that she feels that there is a elephant sitting on her chest, this worsens when she has coughing spells. She complains of a fever that has gotten above 101. She is uncertain if she has had a fever in the last 24 hours. She has no appetite. Denies diarrhea or constipation. Has no dysuria, increased urinary frequency or urgency. Denies any abnormal skin rashes. Denies any abdominal pain. Cough is generally nonproductive. Daughter had similar symptoms and then recovered with. Patient did at home COVID test which was negative. Patient returned from a 2 week trip to [place] the approximately 14 days ago. Related Data Home Medications ?Medication ?Instructions ?Recorded ?Confirmed citalopram 20 mg tablet mg 01/03/23 07/24/24 krill oil PO 01/03/23 07/24/24 citalopram 10 mg tablet 10 mg PO DAILY 05/15/24 07/24/24 losartan 25 mg tablet 25 mg PO DAILY 05/15/24 07/24/24 loratadine-pseudoephedrine ER 10 1 tab PO QDAY 07/24/24 07/24/24 mg-240 mg tablet,extended [id number] (Claritin-D 24 Hour) Previous Rx's ?Medication ?Instructions ?Recorded estradiol 1 mg tablet 1 mg PO QDAY #90 tabs 07/24/24 progesterone micronized 100 mg 100 mg PO QHS #90 caps 07/24/24 capsule Allergies Allergy/AdvReac Type Severity Reaction Status Date / Time amoxicillin Allergy Verified 07/24/24 14:02 cephalexin (From Keflex) Allergy Verified 07/24/24 14:02 ciprofloxacin Allergy leg Verified 07/24/24 14:02 tightness metformin Allergy Diarrhea Verified 07/24/24 14:02 sulfamethoxazole (From Allergy GI Verified 07/24/24 14:02 Bactrim) intolerance trimethoprim (From Bactrim) Allergy GI Verified 07/24/24 14:02 intolerance Review of Systems Status of ROS: Reports: 10 or more systems reviewed and unremarkable except as noted in History and below [facility] Medical History Anxiety ?F41.9 - Anxiety disorder, unspecified (ICD-10) Hypertension ?I10 - Essential (primary) hypertension (ICD-10) Surgical History History of repair of hiatal hernia ?Z98.890 - Other specified postprocedural states (ICD-10) ?Z87.19 - Personal history of other diseases of the digestive system (ICD-10) History of esophagogastroduodenoscopy (EGD) (05/28/14) ?Z98.890 - Other specified postprocedural states (ICD-10) History of nasal septoplasty (04/24/07) ?Z98.890 - Other specified postprocedural states (ICD-10) History of hysteroscopy ?Z98.890 - Other specified postprocedural states (ICD-10) Family History Maternal Grandfather Bladder cancer Mother High cholesterol High blood pressure Asthma Breast cancer Father High blood pressure Esophageal cancer Paternal Grandmother Diabetes Brother Barretts esophagus Social History Smoking Status: Never smoker Do you use any of these nicotine containing products: None Second hand tobacco smoke exposure: No How often do you have a drink containing alcohol: monthly or less AUDIT-C Alcohol total score: 1 Non-prescribed substance use: denies use Exam Narrative: Exam Narrative: Well-nourished well-developed patient in no acute distress. Alert and oriented. Answers questions appropriately. Mood and affect are appropriate. Thoughts are goal oriented and rational. No tangential or magical thinking noted. Patient speaks in full sentences without needing to catch her breath. Patient does not appear ill or toxic. HEENT: Normocephalic atraumatic. Pupils are equally round reactive to light. Extraocular muscles are intact. Conjunctivae are moist without any icterus noted. Moist mucous membranes. Posterior pharynx is normal. Neck is soft without any lymphadenopathy or thyromegaly. No masses are appreciated. Cardiovascular: Heart is regular rate and rhythm S1 and S2 are present without any murmurs. Lungs: Clear to auscultation bilaterally no wheezes rhonchi or rales are appreciated. Patient takes deep breaths without any discomfort. Abdomen: Soft and nontender nondistended with normal bowel sounds. No guarding or rebound. Extremities: Bilateral lower extremities are without edema. Skin: Well perfused without any obvious rashes. Patient does have a sunburn with peeling skin of the extremities. Const: Vital Signs, click to edit/add: Vital Signs - 24 hr 01/31/25 09:31 01/31/25 11:30 Temperature 99.2 F 98.1 F Pulse Rate [Pulse Oximeter] 75 67 Respiratory Rate 18 18 Blood Pressure [Ri ght Upper Arm] 123/83 120/75 Pulse Oximetry 96 96 Oxygen Delivery Me thod Room Air Course Course ED Course: EKG, read by me, shows normal sinus rhythm with a pulse of 79. Lab work unremarkable. Chest x-ray, read by me, normal. Vital Signs Vital signs: Initial Vital Signs Temperature 99.2 F 01/31/25 09:31 Temperature Source Temporal Artery Scan 01/31/25 09:31 Pulse Rate 75 01/31/25 09:31 Pulse Rhythm Regular 01/31/25 09:31 Respiratory Rate 18 01/31/25 09:31 Blood Pressure 123/83 01/31/25 09:31 Blood Pressure Mean 96 01/31/25 09:31 Blood Pressure Position Sitting 01/31/25 09:31 Pulse Oximetry 96 01/31/25 09:31 Vital Signs Temperature 99.2 F 01/31/25 09:31 Pulse Rate 75 01/31/25 09:31 Respiratory Rate 18 01/31/25 09:31 Blood Pressure 123/83 01/31/25 09:31 Pulse Oximetry 96 01/31/25 09:31 Temperature 98.1 F 01/31/25 11:30 Pulse Rate 67 01/31/25 11:30 Respiratory Rate 18 01/31/25 11:30 Blood Pressure 120/75 01/31/25 11:30 Pulse Oximetry 96 01/31/25 11:30 Oxygen Delivery Method Room Air 01/31/25 11:30 Medical Decision Making MDM Narrative Medical decision making narrative: 54-year-old female with with a cough not feeling well. It sounds like patient potentially had influenza and is now recovering. We discussed for her to continue doing what she is doing, resting staying hydrated. Patient had no other concerns. Lab Data Lab results reviewed: Yes I reviewed the patient's lab results Labs: Lab Results 01/31/25 01/31/25 Range/Units 09:44 10:28 WBC 5.47 (4.50-11.00) K/uL RBC 5.04 (4.00-5.20) m/uL Hgb 14.0 (12.0-16.0) gm/dL Hct 42.5 (33.0-51.0) % MCV 84 (80-100) fL MCH 28 (26-34) pg MCHC 33 (32-36) gm/dL RDW Coeff of Erica 12.9 (11.5-15.5) % Plt Count 276 (140-440) K/uL Neut % (Auto) 56.5 (42.0-72.0) % Lymph % (Auto) 34.2 (20-44) % [place] % (Auto) 7.1 (0.0-11.0) % Eos % (Auto) 1.8 (0.0-7.0) % Baso % (Auto) 0.2 (0.0-3.0) % Neut # (Auto) 3.09 (1.7-7.0) K/uL Lymph # (Auto) 1.87 (0.90-2.90) K/uL [place] # (Auto) 0.40 (0.00-0.90) K/UL Eos # (Auto) 0.10 (0.00-0.50) K/uL Baso # (Auto) 0.01 (0.00-0.30) K/uL Abs Immat Gran (auto) 0.01 (0.00-0.30) K/uL Imm/Tot Granulo (auto) 0.2 % D-Dimer Quant (PE/DVT) < 0.27 (0.00-0.50) ug/ml Sodium 139 (135-149) mmol/L Potassium 4.3 (3.6-5.1) mmol/L Chloride 103 (96-114) mmol/L Carbon Dioxide 29 (20-32) mmol/L Anion Gap 7 (7-15) mEq/L BUN 12 (7-30) mg/dL Creatinine 0.7 (0.5-1.5) mg/dL Estimated GFR 103 ml/min Glucose 86 (60-115) mg/dL Lactate 0.6 (0.5-1.9) mmol/L Calcium 8.6 (8.4-10.6) mg/dL Total Bilirubin 0.6 (0.1-1.5) mg/dL Direct Bilirubin 0.2 (0.0-0.5) mg/dL AST 29 (12-35) U/L ALT 39 H (4-35) U/L Alkaline Phosphatase 66 (40-150) U/L Troponin I < 0.01 (0.01-0.04) ng/mL C-Reactive Protein < 0.5 L (0.5-1.0) mg/dL Total Protein 7.2 (6.0-8.3) g/dL Albumin 4.3 (3.3-5.0) g/dL Lipase 105 (23-300) U/L SARS-CoV-2 (PCR) Negative SARS-CoV-2 (Negative) Influenza Type A (PCR) Negative PCR FLU A (Negative) Influenza Type B (PCR) Negative PCR FLU B (Negative) RSV (PCR) Negative PCR RSV (Negative) POC Troponin I 0.00 L (0.01-0.04) ng/ml Imaging Data Chest x-ray: Attestation: I have reviewed the pertinent imaging results. Radiologist's impression: TECHNIQUE: Chest 2 views. COMPARISON: X-ray chest December 2022. FINDINGS/ IMPRESSION: No focal consolidation, effusion or pneumothorax. Cardiac size is within normal limit without pulmonary edema. No acute osseous findings. ECG Data Attestation: I personally reviewed and interpreted this ECG as follows: Discharge Plan Discharge Clinical Impression: Cough Patient Disposition: Home, Self-Care Condition: Stable Additional Instructions: Continue to rest as needed, stay well hydrated. Prescriptions: No Action citalopram 10 mg tablet 10 mg PO DAILY losartan 25 mg tablet 25 mg PO DAILY loratadine-pseudoephedrine [Claritin-D 24 Hour] 10-240 mg tablet extended release 24 hr 1 tab PO QDAY estradiol 1 mg tablet 1 mg PO QDAY Qty: 90 3RF progesterone micronized 100 mg capsule 100 mg PO QHS Qty: 90 3RF citalopram 20 mg tablet Patient Comments: TAKE 1 TABLET BY MOUTH DAILY khrisill oil PO Follow Up/Referrals: Lashon Conrad DO [Primary Care Provider] - Stand Alone Forms: MyHealth Info Instructions
[2025-01-31 10:45] LABS: Slide Review Reflex No
[2025-01-31 10:53] LABS: Albumin* 4.3 g/dL (3.3-5.0); Chloride* 103 mmol/L (96-114)
[2025-01-31 10:54] LABS: Potassium* 4.3 mmol/L (3.6-5.1); Sodium* 139 mmol/L (135-149)
[2025-01-31 10:56] LABS: Alanine Aminotransferase* 39 U/L (4-35); Alkaline Phosphatase* 66 U/L (40-150); Anion Gap 7 mEq/L (7-15); Aspartate Amino Transferase* 29 U/L (12-35); Bilirubin Direct* 0.2 mg/dL (0.0-0.5); Bilirubin Total* 0.6 mg/dL (0.1-1.5); Blood Urea Nitrogen* 12 mg/dL (7-30); Carbon Dioxide* 29 mmol/L (20-32); Creatinine* 0.7 mg/dL (0.5-1.5); Estimated Glomerular Filt Rate 103 ml/min; Total Protein* 7.2 g/dL (6.0-8.3)
[2025-01-31 10:57] LABS: Calcium* 8.6 mg/dL (8.4-10.6); Glucose* 86 mg/dL (60-115); Lipase* 105 U/L (23-300)
[2025-01-31 11:13] LABS: Troponin I* < 0.01 ng/mL (0.01-0.04)
[2025-01-31 11:14] LABS: C Reactive Protein* < 0.5 mg/dL (0.5-1.0)
[2025-01-31 11:19] LABS: PCR FLU A Negative PCR FLU A (Negative); PCR FLU B Negative PCR FLU B (Negative); PCR RSV Negative PCR RSV (Negative); SARS PCR* Negative SARS-CoV-2 (Negative)
[2025-01-31 11:30] VITALS: BP 120/75; PULSE 67; RESP 18; TEMP 36.7; O2SAT 96
[2025-01-31 11:49] LABS: D Dimer Quantitative* < 0.27 ug/ml (0.00-0.50)
== END 2025-01-31 12:45 | disposition home or self-care (01) ==
PROVIDERS: Emergency Provider Family Medicine; PCP Family Medicine
DX: R05.9 Cough, unspecified (principal)
CPT/HCPCS: 36415; 71046; 80048; 80076; 83605; 83690; 84484; 85025; 85379; 86140; 87631; 93005; 94761; 99284; 99285

== ENCOUNTER 2025-08-27 11:29 | Outpatient (CLI) | payer BC, SELFPAY | END 2025-08-27 11:30 | disposition home or self-care (01) | PROVIDERS: PCP Family Medicine; Visit Provider Obstetrics & Gynecology | DX: Z01.419 Encounter for gynecological examination (general) (routine) without abnormal findings (principal) | CPT/HCPCS: 80048; 80061; 84439; 84443; 84450; 84460 ==